=== PATIENT | female | born 1955 | race Caucasian/White ===

== ENCOUNTER 2018-03-08 15:41 | Inpatient (IN) | payer OTHER ==
[~2018-03-08] VITALS: Ht 167.6 cm; Wt 113.9 kg
[2018-03-08] MEDS ORDERED: BISACODYL 10 MG SUPP PR PRN (18:30)
[2018-03-08] MEDS ORDERED: OXYcodone IR 5MG TABLET PO PRN (18:30)
[2018-03-08] MEDS ORDERED: ONDANSETRON ODT 4 MG PO PRN (18:30)
[2018-03-08] MEDS ORDERED: POLYETHYLENE GLYCOL 17 GM PACKET PO PRN (18:30)
[2018-03-08] MEDS: PLEASE ENTER HEIGHT AND WEIGHT MC SCH ×2 (19:17→19:18)
[2018-03-08] MEDS: PLEASE ENTER ALLERGIES MC SCH ×2 (19:17→19:18)
[2018-03-08 20:15] VITALS: BP 102/63
[2018-03-08] MEDS: SODIUM CHLORIDE FLUSH 10ML SYR IVF SCH (20:38)
[2018-03-08] MEDS: INSULIN LISPRO 100 UNITS/ML, PEN SQ-INSULIN SCH (20:38)
[2018-03-08] MEDS ORDERED: GLUCAGON 1 MG IM PRN (23:30)
[2018-03-08] MEDS ORDERED: DEXTROSE 50%, 50ML SYRINGE IVPush PRN (23:30)
[2018-03-08] MEDS ORDERED: DEXTROSE 4 GM TAB.CHEW PO PRN (23:30)
[2018-03-08] MEDS: CEFTRIAXONE PMX 1GM/50ML 50 ML IV SCH (23:58)
[2018-03-09] MEDS: AZITHROMYCIN 500 MG in SODIUM CHLORIDE 0.9% 250 ML IV SCH ×2 (00:05→23:51)
[2018-03-09 00:47] VITALS: BP 108/68
[2018-03-09 04:49] LABS: BASOPHILS # (AUTO) 0.06 x10^3/uL (0-0.1); BASOPHILS % (AUTO) 1 % (0-1); EOSINOPHILS # (AUTO) 0.47 x10^3/uL (0-0.4); EOSINOPHILS % (AUTO) 5 % (1-7); LYMPHOCYTES # (AUTO) 2.45 x10^3/uL (1-3.4); LYMPHOCYTES % (AUTO) 28 % (22-44); MD NO; MEAN CORPUSCULAR HEMOGLOBIN 32.9 pg (27.0-34.8); MEAN CORPUSCULAR HGB CONC 33.6 g/dL (32.4-35.8); MEAN CORPUSCULAR VOLUME 98.1 fL (80-100); MEAN PLATELET VOLUME 8.5 fL (7.4-10.4); MONOCYTES # (AUTO) 0.71 x10^3/uL (0.2-0.8); MONOCYTES % (AUTO) 8 % (2-9); NEUTROPHILS # (AUTO) 5.15 x10^3/uL (1.8-6.8); NEUTROPHILS % (AUTO) 58 % (42-75); PLATELET COUNT 268 x10^3/uL (130-400); RED BLOOD COUNT 3.73 x10^6/uL (3.82-5.3); RED CELL DISTRIBUTION WIDTH 12.9 % (9.6-15.2)
[2018-03-09 05:01] LABS: ALBUMIN 2.1 g/dL (3.4-5.0); ANION GAP 9 mmol/L (5-15); CALCIUM 7.6 mg/dL (8.5-10.1); CHLORIDE 109 mmol/L (98-107)
[2018-03-09 05:03] LABS: ALANINE AMINOTRANSFERASE 67 U/L (12-78); ALKALINE PHOSPHATASE 117 U/L (45-117); BILIRUBIN,TOTAL 0.4 mg/dL (0.2-1.0); CREATINE KINASE, TOTAL 511 U/L (26-192); CREATININE 0.42 mg/dL (0.55-1.02); TOTAL PROTEIN 5.7 g/dL (6.4-8.2); TROPONIN I 0.163 ng/mL (0.000-0.045)
[2018-03-09] MEDS ORDERED: METOPROLOL SUCCINATE 50 MG TAB.ER.24H PO SCH (06:00)
[2018-03-09] MEDS: INSULIN LISPRO 100 UNITS/ML, PEN SQ-INSULIN SCH ×4 (06:12→21:06)
[2018-03-09 07:32] VITALS: BP 97/61
[2018-03-09] MEDS ORDERED: SPIRONOLACTONE 25 MG TABLET PO SCH (09:00)
[2018-03-09] MEDS ORDERED: AMIODARONE 200 MG TABLET PO SCH (09:00)
[2018-03-09] MEDS ORDERED: LISINOPRIL 5 MG TABLET PO SCH (09:00)
[2018-03-09] MEDS ORDERED: FUROSEMIDE 40 MG/4 ML IV ONE (09:30)
[2018-03-09] MEDS: SODIUM CHLORIDE FLUSH 10ML SYR IVF SCH ×2 (10:52→20:38)
[2018-03-09] MEDS: SENNA/DOCUSATE TABLET PO SCH (10:52)
[2018-03-09] MEDS: MULTIVITAMIN 1 TABLET PO SCH (10:52)
[2018-03-09 11:20] LABS: TROPONIN I 0.125 ng/mL (0.000-0.045)
[2018-03-09] MEDS: INSULIN GLARGINE 100 UNITS/ML, PEN SQ-INSULIN SCH (11:53)
[2018-03-09 14:12] VITALS: BP 116/68
[2018-03-09 20:00] VITALS: BP 106/70
[2018-03-09] MEDS: ACETAMINOPHEN 325 MG TABLET PO PRN (20:40)
[2018-03-09] MEDS: CEFTRIAXONE PMX 1GM/50ML 50 ML IV SCH (23:12)
[2018-03-10 02:45] VITALS: BP 92/60
[2018-03-10 04:52] VITALS: BP 100/55
[2018-03-10 04:58] LABS: BASOPHILS # (AUTO) 0.24 x10^3/uL (0-0.1); BASOPHILS % (AUTO) 4 % (0-1); EOSINOPHILS # (AUTO) 0.42 x10^3/uL (0-0.4); EOSINOPHILS % (AUTO) 7 % (1-7); LYMPHOCYTES % (AUTO) 40 % (22-44); MD NO; MEAN CORPUSCULAR HEMOGLOBIN 33.3 pg (27.0-34.8); MEAN CORPUSCULAR HGB CONC 34.5 g/dL (32.4-35.8); MEAN CORPUSCULAR VOLUME 96.6 fL (80-100); MEAN PLATELET VOLUME 7.9 fL (7.4-10.4); MONOCYTES # (AUTO) 0.67 x10^3/uL (0.2-0.8); MONOCYTES % (AUTO) 11 % (2-9); NEUTROPHILS % (AUTO) 39 % (42-75); PLATELET COUNT 283 x10^3/uL (130-400); RED BLOOD COUNT 3.84 x10^6/uL (3.82-5.3); RED CELL DISTRIBUTION WIDTH 13.4 % (9.6-15.2)
[2018-03-10 05:12] LABS: ANION GAP 7 mmol/L (5-15); CALCIUM 7.8 mg/dL (8.5-10.1); CHLORIDE 109 mmol/L (98-107)
[2018-03-10 05:14] LABS: CREATININE 0.47 mg/dL (0.55-1.02)
[2018-03-10] MEDS ORDERED: METOPROLOL SUCCINATE 50 MG TAB.ER.24H PO SCH (06:00)
[2018-03-10] MEDS: INSULIN LISPRO 100 UNITS/ML, PEN SQ-INSULIN SCH ×4 (07:24→21:13)
[2018-03-10 07:36] LABS: TROPONIN I 0.115 ng/mL (0.000-0.045)
[2018-03-10 07:47] VITALS: BP 111/77
[2018-03-10] MEDS: SENNA/DOCUSATE TABLET PO SCH ×2 (10:01→11:09)
[2018-03-10] MEDS: MULTIVITAMIN 1 TABLET PO SCH (10:01)
[2018-03-10] MEDS: FUROSEMIDE 20 MG TABLET PO SCH (10:01)
[2018-03-10] MEDS: INSULIN GLARGINE 100 UNITS/ML, PEN SQ-INSULIN SCH (10:02)
[2018-03-10] MEDS: SODIUM CHLORIDE FLUSH 10ML SYR IVF SCH ×2 (10:02→21:14)
[2018-03-10 12:48] VITALS: BP 120/73
[2018-03-10 20:40] VITALS: BP 126/82
[2018-03-10] MEDS ORDERED: GABAPENTIN 300 MG CAPSULE PO SCH (21:00)
[2018-03-11 01:22] VITALS: BP 114/70
[2018-03-11 04:35] VITALS: BP 109/65
[2018-03-11 04:48] LABS: BASOPHILS # (AUTO) 0.03 x10^3/uL (0-0.1); BASOPHILS % (AUTO) 1 % (0-1); EOSINOPHILS # (AUTO) 0.38 x10^3/uL (0-0.4); EOSINOPHILS % (AUTO) 6 % (1-7); LYMPHOCYTES # (AUTO) 2.48 x10^3/uL (1-3.4); LYMPHOCYTES % (AUTO) 39 % (22-44); MD NO; MEAN CORPUSCULAR HGB CONC 33.6 g/dL (32.4-35.8); MEAN CORPUSCULAR VOLUME 98.3 fL (80-100); MEAN PLATELET VOLUME 7.7 fL (7.4-10.4); MONOCYTES % (AUTO) 11 % (2-9); NEUTROPHILS # (AUTO) 2.71 x10^3/uL (1.8-6.8); NEUTROPHILS % (AUTO) 43 % (42-75); PLATELET COUNT 293 x10^3/uL (130-400); RED BLOOD COUNT 3.82 x10^6/uL (3.82-5.3); RED CELL DISTRIBUTION WIDTH 12.7 % (9.6-15.2)
[2018-03-11 05:01] LABS: ANION GAP 7 mmol/L (5-15); CALCIUM 8.4 mg/dL (8.5-10.1); CHLORIDE 109 mmol/L (98-107)
[2018-03-11 05:06] LABS: CREATININE 0.52 mg/dL (0.55-1.02)
[2018-03-11] MEDS ORDERED: METOPROLOL SUCCINATE 25 MG TAB.ER.24H PO SCH (06:00)
[2018-03-11 06:54] VITALS: BP 122/70
[2018-03-11] MEDS: INSULIN LISPRO 100 UNITS/ML, PEN SQ-INSULIN SCH ×2 (07:00→11:54)
[2018-03-11] MEDS ORDERED: REGADENOSON 0.4 MG/5 ML SYRINGE ONE (08:48)
[2018-03-11] MEDS ORDERED: LISINOPRIL 5 MG TABLET PO SCH (09:00)
[2018-03-11] MEDS: INSULIN GLARGINE 100 UNITS/ML, PEN SQ-INSULIN SCH (11:58)
[2018-03-11] MEDS: MULTIVITAMIN 1 TABLET PO SCH (12:06)
[2018-03-11] MEDS: FUROSEMIDE 20 MG TABLET PO SCH (12:07)
[2018-03-11] MEDS: SODIUM CHLORIDE FLUSH 10ML SYR IVF SCH (12:07)
[2018-03-11] MEDS: ACETAMINOPHEN 325 MG TABLET PO PRN (12:16)
[2018-03-11] MEDS ORDERED: METO25TA91 PO ×2 (12:28→14:55)
[2018-03-11] MEDS ORDERED: LISI5TAB7 PO (12:28)
[2018-03-11] MEDS ORDERED: GABA300C10 PO ×2 (12:28→15:46)
[2018-03-11] MEDS ORDERED: FURO20TA3 PO ×2 (12:28→14:54)
[2018-03-11] MEDS ORDERED: INSU100I13 SQ-INSULIN (12:28)
[2018-03-11 14:00] VITALS: BP 128/68
[2018-03-11] MEDS ORDERED: APIXABAN 5 MG TABLET PO ONE (14:00)
[2018-03-11] MEDS ORDERED: APIX5TAB PO (14:55)
[2018-03-11] MEDS ORDERED: LISI2.5T PO (14:55)
[2018-03-11] MEDS ORDERED: INSU100C SQ-INSULIN (15:18)
[2018-03-11] MEDS ORDERED: INSU100I13 SUBD (15:49)
== END 2018-03-11 16:10 | disposition home or self-care (01) | DRG 73 ==
LOC: 5SO 17:11 → EDBD 17:11 → DCLOUNGE 03-11 15:43
PROVIDERS: ADMIT Hospitalist; ATTEND Hospitalist
DX: S14.3XXA Injury of brachial plexus, initial encounter (principal); J18.9 Pneumonia, unspecified organism; J96.01 Acute respiratory failure with hypoxia; E11.10 Type 2 diabetes mellitus with ketoacidosis without coma; I21.A1 Myocardial infarction type 2; N39.0 Urinary tract infection, site not specified; M62.82 Rhabdomyolysis; I50.22 Chronic systolic (congestive) heart failure; I42.9 Cardiomyopathy, unspecified; I48.92 Unspecified atrial flutter; D68.69 Other thrombophilia; Z68.41 Body mass index [BMI] 40.0-44.9, adult; B96.1 Klebsiella pneumoniae [K. pneumoniae] as the cause of diseases classified elsewhere; E66.01 Morbid (severe) obesity due to excess calories; I11.0 Hypertensive heart disease with heart failure; G62.9 Polyneuropathy, unspecified; W23.0XXA Caught, crushed, jammed, or pinched between moving objects, initial encounter; X58.XXXA Exposure to other specified factors, initial encounter; I48.91 Unspecified atrial fibrillation; I27.20 Pulmonary hypertension, unspecified; Z60.2 Problems related to living alone; Z82.3 Family history of stroke; Z82.49 Family history of ischemic heart disease and other diseases of the circulatory system; Z83.3 Family history of diabetes mellitus; I25.2 Old myocardial infarction; Z79.899 Other long term (current) drug therapy; Y93.89 Activity, other specified; Y92.89 Other specified places as the place of occurrence of the external cause; Y99.8 Other external cause status
CPT/HCPCS: 36415; 78452; 80048; 80053; 82550; 82962; 84484; 85025; 93005; 93017; G0378; J0456; J0696; J2785; A9502; C9898; J1815; J7050